=== PATIENT | male | born 1965 | race Caucasian/White ===

== ENCOUNTER 2017-12-15 07:19 | Emergency (ER) | payer MEDICAID ==
[2017-12-15 07:32] VITALS: BP 155/97
[2017-12-15] MEDS ORDERED: Ketorolac 60 MG/2 ML SDV IM ONE (07:45)
--- NOTE | 2017-12-15 07:51 | EDM.PDOC ---
ED HPI GENERAL MEDICAL PROBLEM - General Chief Complaint: Upper Extremity Injury/Pain Stated Complaint: LEFT SHOULDER PAIN Time Seen by Provider: 12/15/17 07:35 Source of Information: Reports: Patient, Old Records, RN History Limitations: Reports: No Limitations - History of Present Illness INITIAL COMMENTS - FREE TEXT/NARRATIVE: 52 yo male with a hx of a chronic L rotator cuff tear presents with a marked worsening this pain. States he noticed it getting worse when he tried to drive to [place] yesterday. Then not able to sleep well last night. Has most of his pain to the L post neck and L upper back. Pain is worse with breathing. No fever or chills or SOB or cough. Also mentions a recent tooth ache that is not bothering him as much currently, came on over the weekend. Onset: Gradual Onset Date: 12/14/17 Duration: Hour(s):, Constant, Getting Worse Location: Reports: Upper Extremity, Left Quality: Reports: Ache Severity: Moderate Improves with: Reports: Rest Worsens with: Reports: Movement Context: Reports: Other (chronic L rotator cuff tear) Associated Symptoms: Reports: No Other Symptoms Treatments BULB GROWER: Reports: Other (see below) (none) Left Neck Pain Score (Numeric/FACES): 5 - Related Data Allergies Allergy/AdvReac Type Severity Reaction Status Date / Time No Known Allergies Allergy Verified 12/15/17 07:28 Home Meds: Home Meds Cyclobenzaprine [Flexeril] 5 - 10 mg PO TID PRN #14 tab 12/15/17 [Rx] Meloxicam [Mobic] 15 mg PO DAILY PRN #14 tablet 12/15/17 [Rx] Past Medical History Gastrointestinal History: Reports: None Musculoskeletal History: Reports: Arthritis - Infectious Disease History Infectious Disease History: Reports: Chicken Pox, Measles - Past Surgical History Head Surgeries/Procedures: Reports: None GI Surgical History: Reports: Hernia, Inguinal Endocrine Surgical History: Reports: None Musculoskeletal Surgical History: Reports: Shoulder Surgery Dermatological Surgical History: Reports: None Social & Family History - Tobacco Use Smoking Status *Q: Current Every Day Smoker Years of Tobacco use: 30 Packs/Tins Daily: 1 Used Tobacco, but Quit: No Second Hand Smoke Exposure: No - Caffeine Use Caffeine Use: Reports: Coffee - Recreational Drug Use Recreational Drug Use: No Review of Systems - Review of Systems Review Of Systems: See Below Constitutional: Reports: No Symptoms Respiratory: Reports: Pleuritic Chest Pain (L upper back). Denies: Shortness of Breath, Wheezing, Cough, Sputum, Hemoptysis Cardiovascular: Reports: No Symptoms GI/Abdominal: Reports: No Symptoms Musculoskeletal: Reports: Shoulder Pain (Left), Back Pain (L upper back) Skin: Reports: No Symptoms Neurological: Reports: No Symptoms ED EXAM, GENERAL - Physical Exam Exam: See Below Exam Limited By: No Limitations General Appearance: Alert, WD/WN, Mild Distress Eye Exam: Bilateral Eye: Normal Inspection Ears: Normal External Exam, Normal Canal, Hearing Grossly Normal Ear Exam: Bilateral Ear: Auricle Normal Nose: Normal Inspection, Normal Mucosa, No Blood Throat/Mouth: Normal Inspection, Normal Lips, Normal Oropharynx, Normal Voice, No Airway Compromise Head: Atraumatic, Normocephalic Neck: Normal Inspection, Non-Tender (Has pain with movement, not with palpation) Respiratory/Chest: No Respiratory Distress, Lungs Clear, Normal Breath Sounds, No Accessory Muscle Use Cardiovascular: Regular Rate, Rhythm Back Exam: Normal Inspection, Other (no palpable tenderness). No: CVA Tenderness (R), CVA Tenderness (L) Extremities: Non-Tender (no palpable tenderness.), Limited Range of Motion, Other (L deltoid is atrophic). No: No Pedal Edema Neurological: Alert, Oriented, CN II-XII Intact, Normal Cognition, No Motor/ Sensory Deficits Psychiatric: Normal Affect, Normal Mood Skin Exam: Warm, Dry, Intact, Normal Color, No Rash Lymphatic: No Adenopathy Course - Vital Signs Text/Narrative:: Pain more tolerable after Toradol. Last Recorded V/S: Last Vital Signs Temp 33.5 C L 12/15/17 07:38 Pulse 64 12/15/17 07:38 Resp 16 12/15/17 07:38 BP 155/97 H 12/15/17 07:38 Pulse Ox 97 12/15/17 07:38 - Orders/Labs/Meds Orders: Active Orders 24 hr Category Date Time Status Chest 2V [CR] Stat Exams 12/15/17 07:45 Taken Meds: Medications Discontinued Medications Generic Name Dose Route Start Last Admin Trade Name Freq PRN Reason Stop Dose Admin Cyclobenzaprine HCl 10 mg 12/15/17 08:11 12/15/17 08:15 Flexeril PO 12/15/17 08:12 10 mg ONETIME ONE Administration Ketorolac Tromethamine 60 mg 12/15/17 07:45 12/15/17 07:50 Toradol IM 12/15/17 07:46 60 mg ONETIME ONE Administration - Radiology Interpretation Free Text/Narrative:: CXR-neg Departure - Departure Time of Disposition: 08:35 Disposition: Home, Self-Care 01 Condition: Fair Clinical Impression: Shoulder pain, left Qualifiers: Chronicity: chronic Qualified Code(s): M25.512 - Pain in left shoulder; G89.29 - Other chronic pain - Discharge Information *PRESCRIPTION DRUG MONITORING PROGRAM REVIEWED*: No *COPY OF PRESCRIPTION DRUG MONITORING REPORT IN PATIENT JULITO: No Prescriptions: Cyclobenzaprine [Flexeril] 5 - 10 mg PO TID PRN #14 tab PRN Reason: Pain Meloxicam [Mobic] 15 mg PO DAILY PRN #14 tablet PRN Reason: Pain Instructions: Shoulder Pain Referrals: PCP,None [Primary Care Provider] - Forms: ED Department Discharge Additional Instructions: Take meloxicam and Flexeril as needed for pain relief. May add acetaminophen up to 1000 mg every 6 hrs for added relief. Recheck with your doctor later this week. - My Orders Last 24 Hours: My Active Orders 12/15/17 07:45 Chest 2V [CR] Stat - Assessment/Plan Last 24 Hours: My Active Orders 12/15/17 07:45 Chest 2V [CR] Stat
[2017-12-15] MEDS ORDERED: Cyclobenzaprine 10 MG Tab PO ONE (08:11)
--- NOTE | 2017-12-15 10:21 | CR ---
CHEST: 2 view CLINICAL HISTORY:Upper back pain COMPARISON:None FINDINGS: Heart size and pulmonary vascularity are normal. Lung bustillo are clear. IMPRESSION: No acute cardiopulmonary process
== END 2017-12-15 08:38 | disposition home or self-care (01) ==
LOC: JP.ED 07:19
DX: M25.512 Pain in left shoulder (principal); F17.210 Nicotine dependence, cigarettes, uncomplicated
CPT/HCPCS: 71046; 96372; 99284; A9270; J1885

== ENCOUNTER 2018-05-09 20:34 | Inpatient (IN) | payer MEDICAID ==
--- NOTE | 2018-05-09 22:17 | EDM.PDOC ---
ED HPI GENERAL MEDICAL PROBLEM - General Chief Complaint: Lower Extremity Injury/Pain Stated Complaint: HIP SURGERY SWELLING Time Seen by Provider: 05/09/18 22:15 Source of Information: Reports: Patient History Limitations: Reports: No Limitations - History of Present Illness INITIAL COMMENTS - FREE TEXT/NARRATIVE: pt had surgery 2 weeks ago when he had a total hip done. He now has swelling of his entire leg. This has happenmed in the last 2 days. He is not having alot of pain. Onset: Gradual Duration: Hour(s): Location: Reports: Lower Extremity, Left Associated Symptoms: Reports: No Other Symptoms left calf Pain Score (Numeric/FACES): 1 - Related Data Allergies Allergy/AdvReac Type Severity Reaction Status Date / Time No Known Allergies Allergy Verified 05/09/18 21:56 Home Meds: Home Meds Aspirin [Ecotrin] 325 mg PO BID 05/09/18 [History] Past Medical History Respiratory History: Reports: Asthma, COPD Gastrointestinal History: Reports: GERD Musculoskeletal History: Reports: Arthritis, Fracture Psychiatric History: Reports: Depression, Psych Hospitalization(s) Hematologic History: Reports: Other (See Below) Other Hematologic History: aspirin BID - Infectious Disease History Infectious Disease History: Reports: Chicken Pox, Measles - Past Surgical History Head Surgeries/Procedures: Reports: None GI Surgical History: Reports: Hernia, Inguinal Endocrine Surgical History: Reports: None Musculoskeletal Surgical History: Reports: Hip Replacement, Shoulder Surgery Dermatological Surgical History: Reports: None Social & Family History - Tobacco Use Smoking Status *Q: Current Every Day Smoker Years of Tobacco use: 30 Packs/Tins Daily: 0.7 - Caffeine Use Caffeine Use: Reports: Coffee - Recreational Drug Use Recreational Drug Use: No Review of Systems - Review of Systems Review Of Systems: See Below Constitutional: Reports: No Symptoms Eyes: Reports: No Symptoms Ears: Reports: No Symptoms Nose: Reports: No Symptoms Mouth/Throat: Reports: No Symptoms Respiratory: Reports: No Symptoms Cardiovascular: Reports: No Symptoms GI/Abdominal: Reports: No Symptoms Genitourinary: Reports: No Symptoms Musculoskeletal: Reports: Other (pt had a total hip done about 2 weeks ago. He now has swelling of the entire leg. ) Skin: Reports: No Symptoms ED EXAM, GENERAL - Physical Exam Exam: See Below Free Text/Narrative:: pt arrived with swelling of the entire leg on the left. He had a total hip on that side 2 weeks ago. He has been taking 2 asa daily since the surgery. Exam Limited By: No Limitations General Appearance: Alert, Mild Distress Ears: Normal TMs Nose: Normal Inspection Throat/Mouth: Normal Inspection Head: Atraumatic Neck: Normal Inspection Respiratory/Chest: No Respiratory Distress, Other (Pt has not had sob. ) Cardiovascular: Regular Rate, Rhythm GI/Abdominal: Soft, Non-Tender (Male) Exam: Deferred Rectal (Males) Exam: Deferred Extremities: Other (pt has a warm foot with a adequate pulse. He has swelling of his entire leg. The wound from the total hip looks good. ) Neurological: Alert, Oriented, Normal Cognition Psychiatric: Normal Affect Course - Vital Signs Last Recorded V/S: Last Vital Signs Temp 36.1 C 05/09/18 21:57 Pulse 85 05/09/18 21:57 Resp 18 05/09/18 21:57 BP 126/84 05/09/18 21:57 Pulse Ox 96 05/09/18 21:57 - Orders/Labs/Meds Orders: Active Orders 24 hr Category Date Time Status VL Duplex Lwr Ext Veins Ltd Lt [US] Stat Exams 05/09/18 21:42 Ordered BASIC METABOLIC PANEL,BMP [CHEM] Stat Lab 05/09/18 23:43 Ordered INR,PT,PROTHROMBIN TIME [COAG] Stat Lab 05/09/18 23:43 Ordered PTT,PARTIAL THROMBOPLSTIN TIME [COAG] Stat Lab 05/09/18 23:39 Ordered Labs: Laboratory Tests 05/09/18 Range/Units 21:52 WBC 10.1 (4.5-11.0) K/uL RBC 4.29 L (4.30-5.90) M/uL Hgb 13.4 (12.0-15.0) g/dL Hct 39.3 L (40.0-54.0) % MCV 92 (80-98) fL MCH 31 (27-31) pg MCHC 34 (32-36) % Plt Count 311 (150-400) K/uL Neut % (Auto) 59 (36-66) % Lymph % (Auto) 29 (24-44) % [place] % (Auto) 8 H (2-6) % Eos % (Auto) 3 (2-4) % Baso % (Auto) 1 (0-1) % - Re-Assessments/Exams Free Text/Narrative Re-Assessment/Exam: 05/09/18 23:47 Pt arrived with swelling of his entire left leg. He had a US which reveals a clot in the profunda. He will be placed on a heparin drip. Dr Villa will be in to admit the pt. Departure - Departure Time of Disposition: 23:48 Disposition: Admitted As Inpatient 65 Condition: Fair Clinical Impression: Dvt femoral (deep venous thrombosis) - Discharge Information Referrals: Maldonado Cloud MD [Primary Care Provider] - Forms: ED Department Discharge Care Plan Goals: admit to Dr villa. - My Orders Last 24 Hours: My Active Orders 05/09/18 21:42 VL Duplex Lwr Ext Veins Ltd Lt [US] Stat 05/09/18 23:39 PTT,PARTIAL THROMBOPLSTIN TIME [COAG] Stat 05/09/18 23:43 BASIC METABOLIC PANEL,BMP [CHEM] Stat INR,PT,PROTHROMBIN TIME [COAG] Stat - Assessment/Plan Last 24 Hours: My Active Orders 05/09/18 21:42 VL Duplex Lwr Ext Veins Ltd Lt [US] Stat 05/09/18 23:39 PTT,PARTIAL THROMBOPLSTIN TIME [COAG] Stat 05/09/18 23:43 BASIC METABOLIC PANEL,BMP [CHEM] Stat INR,PT,PROTHROMBIN TIME [COAG] Stat
[2018-05-10] MEDS ORDERED: Heparin Sodium 5,000 Units/ML Vial IVPUSH ONE ×3 (00:20→19:00)
--- NOTE | 2018-05-10 00:36 | PCM.HP ---
H&P History of Present Illness - General Date of Service: 05/10/18 Admit Problem/Dx: Admission Diagnosis/Problem Admission Diagnosis/Problem DVT, Deep venous thrombosis of lower extremity Source of Information: Patient, Family, Provider History Limitations: Reports: No Limitations - History of Present Illness Initial Comments - Free Text/Narative: Ariel presents to the emergency room today with 2 days of left leg swelling which extends from his groin down to his foot. Yesterday he had swelling from the foot up to the knee but it got better after he was off his feet for a while so he didn't worry about it too much. He has not had any pain with swelling. He does note pain in the groin and pain down the left lateral side of his hip which has been present since surgery but slowly is getting better. He hasn't noticed any redness or warmth of the leg. No injury to the leg. Physical therapy and rehabilitation had been going quite well up until the swelling started a couple of days ago. He does not report any fevers, shortness of breath or cough. No abdominal pain or nausea. No history of DVT. Workup in the emergency room revealed a proximal left leg DVT. The patient will be admitted for anticoagulation. left calf Pain Score (Numeric/FACES): 1 - Related Data Allergies/Adverse Reactions: Allergies Allergy/AdvReac Type Severity Reaction Status Date / Time No Known Allergies Allergy Verified 05/09/18 21:56 Home Medications: Home Meds Aspirin [Ecotrin] 325 mg PO BID 05/09/18 [History] Past Medical History Respiratory History: Reports: Asthma, COPD Gastrointestinal History: Reports: GERD Musculoskeletal History: Reports: Arthritis, Fracture Psychiatric History: Reports: Depression, Psych Hospitalization(s) Hematologic History: Reports: Other (See Below) Other Hematologic History: aspirin BID - Infectious Disease History Infectious Disease History: Reports: Chicken Pox, Measles - Past Surgical History Head Surgeries/Procedures: Reports: None GI Surgical History: Reports: Hernia, Inguinal Endocrine Surgical History: Reports: None Musculoskeletal Surgical History: Reports: Hip Replacement, Shoulder Surgery Dermatological Surgical History: Reports: None Social & Family History - Family History Cardiac: Reports: CAD (Father) - Tobacco Use Smoking Status *Q: Current Every Day Smoker Years of Tobacco use: 30 Packs/Tins Daily: 0.7 - Caffeine Use Caffeine Use: Reports: Coffee - Alcohol Use Alcohol Use History: Yes Alcohol Use in Last Twelve Months: Yes Alcohol Use Frequency: Monthly - Recreational Drug Use Recreational Drug Use: No H&P Review of Systems - Review of Systems: Review Of Systems: See Below Free Text/Narrative: A complete 12 point review of systems was obtained. Pertinent positives and negatives are noted in the history of present illness. All other systems were reviewed and were negative except as noted. Exam - Exam Exam: See Below - Vital Signs Vital Signs: Last Vital Signs Temp 36.1 C 05/09/18 21:57 Pulse 85 05/09/18 21:57 Resp 18 05/09/18 21:57 BP 126/84 05/09/18 21:57 Pulse Ox 96 05/09/18 21:57 Weight: 97.4 kg - Exam Quality Assessment: No: Supplemental Oxygen General: Alert, Oriented, Cooperative. No: Mild Distress HEENT: Conjunctiva Clear, Mucosa Moist & [place]. No: Scleral Icterus Neck: Supple, Trachea Midline. No: Lymphadenopathy Lungs: Clear to Auscultation, Normal Respiratory Effort Cardiovascular: Regular Rate, Regular Rhythm. No: Systolic Murmur GI/Abdominal Exam: Normal Bowel Sounds, Soft, Non-Tender, No Distention Back Exam: Normal Inspection, Full Range of Motion Extremities: No Pedal Edema (On the right), Pedal Edema (Left leg swollen from the foot all the way up to the groin). No: Increased Warmth Skin: Warm, Dry, Incision (Left lateral thigh incision is healing well with no erythema or drainage) Neuro Extensive - Mental Status: Alert, Oriented x3, Nl Response to Commands Neuro Extensive - Motor, Sensory, Reflexes: CN II-XII Intact. No: Dysarthria, Abnormal Motor, Tremor Psychiatric: Alert, Normal Affect - Patient Data Lab Results Last 24 hrs: Laboratory Results - last 24 hr 05/09/18 05/09/18 05/09/18 Range/Units 00:04 00:04 00:04 WBC (4.5-11.0) K/uL RBC (4.30-5.90) M/uL Hgb (12.0-15.0) g/dL Hct (40.0-54.0) % MCV (80-98) fL MCH (27-31) pg MCHC (32-36) % Plt Count (150-400) K/uL Neut % (Auto) (36-66) % Lymph % (Auto) (24-44) % [place] % (Auto) (2-6) % Eos % (Auto) (2-4) % Baso % (Auto) (0-1) % PT 10.0 (9.5-12.0) sec INR 0.90 (0.80-1.20) APTT 29.2 (27.0-36.0) sec Sodium 139 L (140-148) mmol/L Potassium 4.0 (3.6-5.2) mmol/L Chloride 102 (100-108) mmol/L Carbon Dioxide 27 (21-32) mmol/L Anion Gap 14.0 (5.0-14.0) mmol/L BUN 17 (7-18) mg/dL Creatinine 0.9 (0.8-1.3) mg/dL Est Cr Clr Drug Dosing 104.19 mL/min Estimated GFR (MDRD) > 60 (>60) Glucose 104 (74-106) mg/dL Calcium 9.3 (8.5-10.1) mg/dL 05/09/18 Range/Units 21:52 WBC 10.1 (4.5-11.0) K/uL RBC 4.29 L (4.30-5.90) M/uL Hgb 13.4 (12.0-15.0) g/dL Hct 39.3 L (40.0-54.0) % MCV 92 (80-98) fL MCH 31 (27-31) pg MCHC 34 (32-36) % Plt Count 311 (150-400) K/uL Neut % (Auto) 59 (36-66) % Lymph % (Auto) 29 (24-44) % [place] % (Auto) 8 H (2-6) % Eos % (Auto) 3 (2-4) % Baso % (Auto) 1 (0-1) % PT (9.5-12.0) sec INR (0.80-1.20) APTT (27.0-36.0) sec Sodium (140-148) mmol/L Potassium (3.6-5.2) mmol/L Chloride (100-108) mmol/L Carbon Dioxide (21-32) mmol/L Anion Gap (5.0-14.0) mmol/L BUN (7-18) mg/dL Creatinine (0.8-1.3) mg/dL Est Cr Clr Drug Dosing mL/min Estimated GFR (MDRD) (>60) Glucose (74-106) mg/dL Calcium (8.5-10.1) mg/dL Result Diagrams: 05/09/18 21:52 05/09/18 00:04 Imaging Impressions Last 24 hrs: Venous ultrasound of the left lower extremity - images personally reviewed - there is evidence for DVT in the profundus vein on the left leg with impaired flow and limited compressibility noted with the ultrasound. *Q Meaningful Use (ADM) - VTE Risk Assess *Q Each Risk Factor Represents 1 Point: Age 41 - 59 years, Obesity ( BMI > 25 kg/m2 ) Total Score 1 Point Risk Factors: 2 Each Risk Factor Represents 2 Points: None Total Score 2 Point Risk Factors: 0 Each Risk Factor Represents 3 Points: None Total Score 3 Point Risk Factors: 0 Each Risk Factor Represents 5 Points: Elective Major Lower Extremity Arthroplasty Total Score 5 Point Risk Factors: 5 Venous Thromboembolism Risk Factor Score *Q: 7 - Problem List (1) Dvt femoral (deep venous thrombosis) SNOMED Code(s): 692400012 ICD Code: I82.419 - ACUTE EMBOLISM AND THROMBOSIS OF UNSPECIFIED FEMORAL VEIN Status: Acute Current Visit: Yes Qualifiers: Chronicity: acute Laterality: left Qualified Code(s): I82.412 - Acute embolism and thrombosis of left femoral vein Problem List Initiated/Reviewed/Updated: Yes Orders Last 24hrs: Active Orders 24 hr Category Date Time Status Patient Status Manage Transfer [TRANSFER] Routine ADT 05/10/18 00:22 Ordered VL Duplex Lwr Ext Veins Ltd Lt [US] Stat Exams 05/09/18 21:42 Taken PTT,PARTIAL THROMBOPLSTIN TIME [COAG] Q6H Lab 05/10/18 06:30 Ordered PTT,PARTIAL THROMBOPLSTIN TIME [COAG] Q6 Lab 05/10/18 12:30 Ordered PTT,PARTIAL THROMBOPLSTIN TIME [COAG] Q6 Lab 05/10/18 18:30 Ordered PTT,PARTIAL THROMBOPLSTIN TIME [COAG] Q6 Lab 05/11/18 00:30 Ordered PTT,PARTIAL THROMBOPLSTIN TIME [COAG] Q6H Lab 05/11/18 06:30 Ordered PTT,PARTIAL THROMBOPLSTIN TIME [COAG] Q6 Lab 05/11/18 12:30 Ordered PTT,PARTIAL THROMBOPLSTIN TIME [COAG] Q6H Lab 05/11/18 18:30 Ordered Heparin Sodium/D5W [Heparin 25,000 Units in D5W 500 ML] Med 05/10/18 00:30 Ordered 25,000 units in 500 ml IV TITRATE Sodium Chloride 0.9% [Saline Flush] Med 05/09/18 23:51 Active 10 ml FLUSH ASDIRECTED PRN Saline Lock Insert [OM.PC] Routine Oth 05/09/18 23:51 Ordered Resuscitation Status Routine Resus Stat 05/10/18 00:24 Ordered Medication Orders Heparin Sodium/Dextrose (Heparin 25,000 Units In D5w 500 Ml) 25,000 units in 500 mls @ 35.064 mls/hr IV TITRATE ABILIO; Protocol Sodium Chloride (Saline Flush) 10 ml FLUSH ASDIRECTED PRN PRN Reason: Keep Vein Open Assessment/Plan Comment:: ASSESSMENT AND PLAN - Proximal left leg DVT - provoked with recent hip surgery about 2 weeks ago. Main symptom at this time the swelling without significant pain. 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 We reviewed the benefits of smoking cessation including decreased risk of heart disease and certain cancers. He would like to continue the utilizing the nicotine patch. -21 mg nicotine patch daily Maintenance issues - - DVT prophylaxis - heparin drip - GI prophylaxis - Not indicated - Nutrition - Regular - Mendoza catheter - Not indicated CODE STATUS - Full code Admission justification - This patient will be admitted for inpatient services and is medically appropriate meeting medical necessity for inpatient admission as outlined in my documentation. I reasonably expect the patient will require inpatient services that span a period time over 2 midnights. I reasonably expect this patient to be discharged or transferred within 96 hours [facility]. Disposition - I would anticipate discharge home after the hospital stay Ziggy Asencio M.D.
[2018-05-10] MEDS: Sodium Chloride 0.9% 10 ML Syringe FLUSH PRN ×2 (00:47→07:53)
[2018-05-10] MEDS ORDERED: Nicotine 21 MG/24 Hr Patch TRDERM SCH (01:10)
[2018-05-10] MEDS ORDERED: Ondansetron 4 MG Tab.DIS PO PRN (01:10)
[2018-05-10] MEDS ORDERED: Sodium Chloride 0.9% 1,000 ML IV SCH (01:10)
[2018-05-10] MEDS ORDERED: Acetaminophen 325 MG Tab PO PRN (01:10)
[2018-05-10] MEDS: Heparin Sodium/D5W 25,000 UNITS/500 ML BAG IV SCH ×2 (01:19→14:18)
--- NOTE | 2018-05-10 09:38 | PCM.PN ---
- General Info Date of Service: 05/10/18 Subjective Update: No acute events since admission. Left leg swelling is slightly better. Left hip pain following surgery is stable. He is getting around with a walker or cane. No bleeding issues. No shortness of breath. Functional Status: Reports: Pain Controlled, Tolerating Diet, Ambulating - Review of Systems General: Denies: Fever Cardiovascular: Reports: Edema - Patient Data Vitals - Most Recent: Last Vital Signs Temp 36.6 C 05/10/18 08:53 Pulse 75 05/10/18 08:53 Resp 16 05/10/18 08:53 BP 142/98 H 05/10/18 08:53 Pulse Ox 96 05/10/18 08:53 Weight - Most Recent: 97.4 kg I&O - Last 24 Hours: Intake & Output 05/09/18 05/10/18 05/10/18 22:59 06:59 14:59 Intake Total 1000 Balance 1000 Lab Results Last 24 Hours: Laboratory Results - last 24 hr 05/09/18 05/09/18 05/09/18 Range/Units 00:04 00:04 00:04 WBC (4.5-11.0) K/uL RBC (4.30-5.90) M/uL Hgb (12.0-15.0) g/dL Hct (40.0-54.0) % MCV (80-98) fL MCH (27-31) pg MCHC (32-36) % Plt Count (150-400) K/uL Neut % (Auto) (36-66) % Lymph % (Auto) (24-44) % [place] % (Auto) (2-6) % Eos % (Auto) (2-4) % Baso % (Auto) (0-1) % PT 10.0 (9.5-12.0) sec INR 0.90 (0.80-1.20) APTT 29.2 (27.0-36.0) sec Sodium 139 L (140-148) mmol/L Potassium 4.0 (3.6-5.2) mmol/L Chloride 102 (100-108) mmol/L Carbon Dioxide 27 (21-32) mmol/L Anion Gap 14.0 (5.0-14.0) mmol/L BUN 17 (7-18) mg/dL Creatinine 0.9 (0.8-1.3) mg/dL Est Cr Clr Drug Dosing 104.19 mL/min Estimated GFR (MDRD) > 60 (>60) Glucose 104 (74-106) mg/dL Calcium 9.3 (8.5-10.1) mg/dL 05/09/18 05/10/18 05/10/18 Range/Units 21:52 06:30 06:30 WBC 10.1 9.4 (4.5-11.0) K/uL RBC 4.29 L 4.07 L (4.30-5.90) M/uL Hgb 13.4 13.0 (12.0-15.0) g/dL Hct 39.3 L 37.4 L (40.0-54.0) % MCV 92 92 (80-98) fL MCH 31 32 H (27-31) pg MCHC 34 35 (32-36) % Plt Count 311 286 (150-400) K/uL Neut % (Auto) 59 (36-66) % Lymph % (Auto) 29 (24-44) % [place] % (Auto) 8 H (2-6) % Eos % (Auto) 3 (2-4) % Baso % (Auto) 1 (0-1) % PT (9.5-12.0) sec INR (0.80-1.20) APTT 40.7 H (27.0-36.0) sec Sodium (140-148) mmol/L Potassium (3.6-5.2) mmol/L Chloride (100-108) mmol/L Carbon Dioxide (21-32) mmol/L Anion Gap (5.0-14.0) mmol/L BUN (7-18) mg/dL Creatinine (0.8-1.3) mg/dL Est Cr Clr Drug Dosing mL/min Estimated GFR (MDRD) (>60) Glucose (74-106) mg/dL Calcium (8.5-10.1) mg/dL Med Orders - Current: Current Medications Acetaminophen (Tylenol) 650 mg PO Q4H PRN PRN Reason: Pain (Mild 1-3)/fever Heparin Sodium/Dextrose (Heparin 25,000 Units In D5w 500 Ml) 25,000 units in 500 mls @ 35.064 mls/hr IV TITRATE [facility]; Protocol Last Titration: 05/10/18 07:06 Dose: 20 units/kg/hr, 38.96 mls/hr Sodium Chloride (Normal Saline) 1,000 mls @ 25 mls/hr IV ASDIRECTED [facility] Last Admin: 05/10/18 01:25 Dose: 25 mls/hr Nicotine (Habitrol) 21 mg TRDERM BEDTIME [facility] Ondansetron HCl (Zofran Odt) 4 mg PO Q6H PRN PRN Reason: Nausea able to take PO Senna/Docusate Sodium (Senna Plus) 1 tab PO BID PRN PRN Reason: Constipation Sodium Chloride (Saline Flush) 10 ml FLUSH ASDIRECTED PRN PRN Reason: Keep Vein Open Last Admin: 05/10/18 07:53 Dose: 10 ml Discontinued Medications Heparin Sodium (Porcine) (Heparin Sodium) 2,000 units IVPUSH .BOLUS ONE Stop: 05/10/18 00:21 Last Admin: 05/10/18 01:17 Dose: 2,000 units Heparin Sodium (Porcine) (Heparin Sodium) 1,500 units IVPUSH .BOLUS ONE Stop: 05/10/18 07:04 Last Admin: 05/10/18 07:52 Dose: 1,500 units Nicotine (Habitrol) 21 mg TRDERM DAILY [facility] Last Admin: 05/10/18 01:24 Dose: 21 mg - Exam Quality Assessment: No: Supplemental Oxygen General: Alert, Oriented, Cooperative, No Acute Distress Lungs: Normal Respiratory Effort GI/Abdominal Exam: Soft, No Distention Extremities: No Pedal Edema (right leg), Pedal Edema (left leg) Psy/Mental Status: Alert, Normal Affect - Problem List & Annotations (1) Dvt femoral (deep venous thrombosis) SNOMED Code(s): 264651260 Code(s): I82.419 - ACUTE EMBOLISM AND THROMBOSIS OF UNSPECIFIED FEMORAL VEIN Status: Acute Current Visit: Yes Qualifiers: Chronicity: acute Laterality: left Qualified Code(s): I82.412 - Acute embolism and thrombosis of left femoral vein - Problem List Review Problem List Initiated/Reviewed/Updated: Yes - My Orders Last 24 Hours: My Active Orders 05/10/18 00:24 Resuscitation Status Routine 05/10/18 00:30 Heparin Sodium/D5W [Heparin 25,000 Units in D5W 500 ML] 25,000 units in 500 ml IV TITRATE 05/10/18 01:10 Patient Status [ADT] Routine Antiembolic Devices [RC] .Routine Intake and Output [RC] QSHIFT Notify Provider Vital Signs [RC] ASDIRECTED Oxygen Therapy [RC] PRN Up With Assistance [RC] ASDIRECTED VTE/DVT Education [RC] Per Unit Routine Vital Signs [RC] Q4H Acetaminophen [Tylenol] 650 mg PO Q4H PRN Docusate Sodium/Sennosides [Senna Plus] 1 tab PO BID PRN Ondansetron [Zofran ODT] 4 mg PO Q6H PRN Sodium Chloride 0.9% [Normal Saline] 1,000 ml IV ASDIRECTED JOHN Hose [Antiembolic Hose] [OM.PC] Routine 05/10/18 12:30 PTT,PARTIAL THROMBOPLSTIN TIME [COAG] Q6H 05/10/18 18:30 PTT,PARTIAL THROMBOPLSTIN TIME [COAG] Q6H 05/10/18 21:00 Nicotine [Habitrol] 21 mg TRDERM BEDTIME 05/10/18 Breakfast Regular Diet [DIET] 05/11/18 00:30 PTT,PARTIAL THROMBOPLSTIN TIME [COAG] Q6H 05/11/18 05:00 BASIC METABOLIC PANEL,BMP [CHEM] Timed CBC W/O DIFF,HEMOGRAM [HEME] Timed (1) 05/11/18 06:30 PTT,PARTIAL THROMBOPLSTIN TIME [COAG] Q6H 05/11/18 12:30 PTT,PARTIAL THROMBOPLSTIN TIME [COAG] Q6H 05/11/18 18:30 PTT,PARTIAL THROMBOPLSTIN TIME [COAG] Q6H - Plan Plan:: ASSESSMENT AND PLAN - Proximal left leg DVT - provoked with recent hip surgery about 2 weeks ago. Main symptom at this time the swelling without significant pain. 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 We reviewed the benefits of smoking cessation including decreased risk of heart disease and certain cancers. He would like to continue the utilizing the nicotine patch. -21 mg nicotine patch daily Maintenance issues - - DVT prophylaxis - heparin drip - GI prophylaxis - Not indicated - Nutrition - Regular Disposition - I would anticipate discharge home after the hospital stay Ziggy Asencio M.D.
[2018-05-10] MEDS ORDERED: Calcium Carbonate 500 MG Tab.Chew PO PRN (11:26)
[2018-05-10] MEDS ORDERED: Aluminum Hydroxide/Magnesium Hydroxide/Simethicone Susp 30 ML Cup PO PRN (14:13)
[2018-05-10] MEDS: Nicotine 21 MG/24 Hr Patch TRDERM SCH (20:56)
[2018-05-10] MEDS: Melatonin 3 MG Tab PO SCH (20:56)
[2018-05-11] MEDS: Heparin Sodium/D5W 25,000 UNITS/500 ML BAG IV SCH (02:14)
--- NOTE | 2018-05-11 11:20 | PCM.PN ---
- General Info Date of Service: 05/11/18 Subjective Update: Mr. Gaytan has been stable since yesterday, significant improvement in swelling of his left leg. He is completed 48 hours of IV heparin and will plan to transition to oral anticoagulation today. Functional Status: Reports: Pain Controlled, Tolerating Diet, Ambulating, Urinating - Review of Systems General: Reports: No Symptoms Pulmonary: Reports: No Symptoms Cardiovascular: Reports: No Symptoms Gastrointestinal: Reports: No Symptoms - Patient Data Vitals - Most Recent: Last Vital Signs Temp 98.3 F 05/11/18 07:00 Pulse 71 05/11/18 07:00 Resp 14 05/11/18 07:00 BP 129/96 H 05/11/18 07:00 Pulse Ox 95 05/11/18 07:00 Weight - Most Recent: 214 lb 11.684 oz I&O - Last 24 Hours: Intake & Output 05/10/18 05/11/18 05/11/18 22:59 06:59 14:59 Intake Total 1860 Balance 1860 Lab Results Last 24 Hours: Laboratory Results - last 24 hr 05/10/18 05/10/18 05/11/18 Range/Units 12:30 18:30 00:30 WBC (4.5-11.0) K/uL RBC (4.30-5.90) M/uL Hgb (12.0-15.0) g/dL Hct (40.0-54.0) % MCV (80-98) fL MCH (27-31) pg MCHC (32-36) % Plt Count (150-400) K/uL APTT 50.7 H 44.6 H 66.8 H (27.0-36.0) sec Sodium (140-148) mmol/L Potassium (3.6-5.2) mmol/L Chloride (100-108) mmol/L Carbon Dioxide (21-32) mmol/L Anion Gap (5.0-14.0) mmol/L BUN (7-18) mg/dL Creatinine (0.8-1.3) mg/dL Est Cr Clr Drug Dosing mL/min Estimated GFR (MDRD) (>60) Glucose (74-106) mg/dL Calcium (8.5-10.1) mg/dL 05/11/18 05/11/18 05/11/18 Range/Units 05:00 05:00 06:30 WBC 7.8 (4.5-11.0) K/uL RBC 4.37 (4.30-5.90) M/uL Hgb 13.7 (12.0-15.0) g/dL Hct 40.0 (40.0-54.0) % MCV 92 (80-98) fL MCH 31 (27-31) pg MCHC 34 (32-36) % Plt Count 288 (150-400) K/uL APTT 69.9 H (27.0-36.0) sec Sodium 138 L (140-148) mmol/L Potassium 4.6 (3.6-5.2) mmol/L Chloride 103 (100-108) mmol/L Carbon Dioxide 28 (21-32) mmol/L Anion Gap 11.6 (5.0-14.0) mmol/L BUN 12 (7-18) mg/dL Creatinine 1.0 (0.8-1.3) mg/dL Est Cr Clr Drug Dosing 93.90 mL/min Estimated GFR (MDRD) > 60 (>60) Glucose 132 H (74-106) mg/dL Calcium 9.1 (8.5-10.1) mg/dL Med Orders - Current: Current Medications Acetaminophen (Tylenol) 650 mg PO Q4H PRN PRN Reason: Pain (Mild 1-3)/fever Last Admin: 05/10/18 11:52 Dose: 650 mg Al Hydroxide/Mg Hydroxide (Mag-Al Plus) 30 ml PO Q4H PRN PRN Reason: Indigestion Calcium Carbonate/Glycine (Tums) 1,000 mg PO Q2H PRN PRN Reason: Indigestion Last Admin: 05/10/18 11:53 Dose: 1,000 mg Sodium Chloride (Normal Saline) 1,000 mls @ 25 mls/hr IV ASDIRECTED [facility] Last Admin: 05/10/18 01:25 Dose: 25 mls/hr Melatonin (Melatonin) 9 mg PO BEDTIME [facility] Last Admin: 05/10/18 20:56 Dose: 9 mg Nicotine (Habitrol) 21 mg TRDERM BEDTIME [facility] Last Admin: 05/10/18 20:56 Dose: 21 mg Ondansetron HCl (Zofran Odt) 4 mg PO Q6H PRN PRN Reason: Nausea able to take PO Senna/Docusate Sodium (Senna Plus) 1 tab PO BID PRN PRN Reason: Constipation Sodium Chloride (Saline Flush) 10 ml FLUSH ASDIRECTED PRN PRN Reason: Keep Vein Open Last Admin: 05/10/18 07:53 Dose: 10 ml Discontinued Medications Heparin Sodium (Porcine) (Heparin Sodium) 2,000 units IVPUSH .BOLUS ONE Stop: 05/10/18 00:21 Last Admin: 05/10/18 01:17 Dose: 2,000 units Heparin Sodium (Porcine) (Heparin Sodium) 1,500 units IVPUSH .BOLUS ONE Stop: 05/10/18 07:04 Last Admin: 05/10/18 07:52 Dose: 1,500 units Heparin Sodium (Porcine) (Heparin Sodium) 1,500 units IVPUSH .BOLUS ONE Stop: 05/10/18 19:01 Last Admin: 05/10/18 20:00 Dose: 1,500 units Heparin Sodium/Dextrose (Heparin 25,000 Units In D5w 500 Ml) 25,000 units in 500 mls @ 35.064 mls/hr IV TITRATE [facility]; Protocol Last Admin: 05/11/18 02:14 Dose: 22 units/kg/hr, 42.856 mls/hr Nicotine (Habitrol) 21 mg TRDERM DAILY [facility] Last Admin: 05/10/18 01:24 Dose: 21 mg - Exam General: Alert, Oriented, Cooperative, No Acute Distress Lungs: Clear to Auscultation, Normal Respiratory Effort Cardiovascular: Regular Rate, Regular Rhythm, No Murmurs GI/Abdominal Exam: Soft, Non-Tender, No Organomegaly, No Distention - Problem List Review Problem List Initiated/Reviewed/Updated: Yes - My Orders Last 24 Hours: My Active Orders 05/11/18 12:00 Rivaroxaban [Xarelto] 15 mg PO BID - Plan Plan:: ASSESSMENT AND PLAN - Proximal left leg DVT - provoked with recent hip surgery about 2 weeks ago. 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 We reviewed the benefits of smoking cessation including decreased risk of heart disease and certain cancers. He would like to continue the utilizing the nicotine patch. -21 mg nicotine patch daily Maintenance issues - - DVT prophylaxis - heparin drip - GI prophylaxis - Not indicated - Nutrition - Regular Disposition - I would anticipate discharge home after the hospital stay
[2018-05-11] MEDS: Rivaroxaban 15 MG Tab PO SCH ×2 (12:35→20:10)
[2018-05-11] MEDS: Melatonin 3 MG Tab PO SCH (20:10)
[2018-05-11] MEDS: Nicotine 21 MG/24 Hr Patch TRDERM SCH (20:10)
[2018-05-12 08:35] VITALS: BP 153/92
[2018-05-12] MEDS: Rivaroxaban 15 MG Tab PO SCH (08:37)
--- NOTE | 2018-05-12 10:49 | PCM.DCSUM1 ---
Discharge Summary - Hospital Course Brief History: Mr. Gaytan is a 52-year-old gentleman who is admitted through the emergency department with swelling and pain in his left leg secondary to a proximal deep vein thrombosis. - Discharge Data Discharge Date: 05/12/18 Discharge Disposition: Home, Self-Care 01 Condition: Fair - Discharge Diagnosis/Problem(s) (1) Dvt femoral (deep venous thrombosis) SNOMED Code(s): 511109534 ICD Code: I82.419 - ACUTE EMBOLISM AND THROMBOSIS OF UNSPECIFIED FEMORAL VEIN Status: Acute Current Visit: Yes Qualifiers: Chronicity: acute Laterality: left Qualified Code(s): I82.412 - Acute embolism and thrombosis of left femoral vein - Patient Summary/Data Hospital Course: Ariel presented to the emergency room, with 2 days of left leg swelling which extends from his groin down to his foot. He is status post left total hip arthroplasty done during the early portion of April. Yesterday he had swelling from the foot up to the knee but it got better after he was off his feet for a while so he didn't worry about it too much. He has not had any pain with swelling. He does note pain in the groin and pain down the left lateral side of his hip which has been present since surgery but slowly is getting better. He hasn't noticed any redness or warmth of the leg. No injury to the leg. Physical therapy and rehabilitation had been going quite well up until the swelling started a couple of days ago. He does not report any fevers, shortness of breath or cough. No abdominal pain or nausea. No history of DVT. Workup in the emergency room revealed a proximal left leg DVT. On admission he was started on continuous infusion of IV heparin following a bolus dose. Swelling improved over the next few days of hospitalization and had almost totally resolved by the time of discharge. As the swelling improved he was able to be more active and by the time of discharge was up walking in the halls. On the day prior to discharge we had a discussion concerning options for oral anticoagulation. He's decided to take Xarelto and will be on 15 mg twice daily for the first 21 days, then 20 mg daily thereafter. Activity will be as tolerated and he will resume his usual diet. He already has a follow-up appointment with orthopedic surgery for early May and a follow-up appointment will be scheduled with Dr. Cloud within the next week. - Patient Instructions Diet: Usual Diet as Tolerated Activity: As Tolerated Other/Special Instructions: Please schedule follow-up appointment with Dr. Cloud within one week. - Discharge Plan *PRESCRIPTION DRUG MONITORING PROGRAM REVIEWED*: Not Applicable *COPY OF PRESCRIPTION DRUG MONITORING REPORT IN PATIENT JULITO: Not Applicable Home Medications: Home Meds Aspirin [Ecotrin] 325 mg PO BID 05/09/18 [History] Rivaroxaban [Xarelto] 15 mg PO BID #0 tablet 05/12/18 [Rx] Referrals: Maldonado Cloud MD [Primary Care Provider] - - Discharge Summary/Plan Comment DC Time >30 min.: No - Patient Data Vitals - Most Recent: Last Vital Signs Temp 96.1 F 05/12/18 08:33 Pulse 76 05/12/18 08:33 Resp 16 05/12/18 08:33 BP 153/92 H 05/12/18 08:33 Pulse Ox 96 05/12/18 08:33 Weight - Most Recent: 214 lb 11.684 oz I&O - Last 24 hours: Intake & Output 05/11/18 05/12/18 05/12/18 22:59 06:59 14:59 Intake Total 1500 Balance 1500 Lab Results - Last 24 hrs: Laboratory Results - last 24 hr 05/11/18 05/11/18 Range/Units 12:30 18:30 APTT 61.9 H 32.5 (27.0-36.0) sec Med Orders - Current: Current Medications Acetaminophen (Tylenol) 650 mg PO Q4H PRN PRN Reason: Pain (Mild 1-3)/fever Last Admin: 05/10/18 11:52 Dose: 650 mg Al Hydroxide/Mg Hydroxide (Mag-Al Plus) 30 ml PO Q4H PRN PRN Reason: Indigestion Calcium Carbonate/Glycine (Tums) 1,000 mg PO Q2H PRN PRN Reason: Indigestion Last Admin: 05/10/18 11:53 Dose: 1,000 mg Sodium Chloride (Normal Saline) 1,000 mls @ 25 mls/hr IV ASDIRECTED [facility] Last Admin: 05/10/18 01:25 Dose: 25 mls/hr Melatonin (Melatonin) 9 mg PO BEDTIME [facility] Last Admin: 05/11/18 20:10 Dose: 9 mg Nicotine (Habitrol) 21 mg TRDERM BEDTIME [facility] Last Admin: 05/11/18 20:10 Dose: 21 mg Ondansetron HCl (Zofran Odt) 4 mg PO Q6H PRN PRN Reason: Nausea able to take PO Rivaroxaban (Xarelto) 15 mg PO BID [facility] Last Admin: 05/12/18 08:37 Dose: 15 mg Senna/Docusate Sodium (Senna Plus) 1 tab PO BID PRN PRN Reason: Constipation Sodium Chloride (Saline Flush) 10 ml FLUSH ASDIRECTED PRN PRN Reason: Keep Vein Open Last Admin: 05/10/18 07:53 Dose: 10 ml Discontinued Medications Heparin Sodium (Porcine) (Heparin Sodium) 2,000 units IVPUSH .BOLUS ONE Stop: 05/10/18 00:21 Last Admin: 05/10/18 01:17 Dose: 2,000 units Heparin Sodium (Porcine) (Heparin Sodium) 1,500 units IVPUSH .BOLUS ONE Stop: 05/10/18 07:04 Last Admin: 05/10/18 07:52 Dose: 1,500 units Heparin Sodium (Porcine) (Heparin Sodium) 1,500 units IVPUSH .BOLUS ONE Stop: 05/10/18 19:01 Last Admin: 05/10/18 20:00 Dose: 1,500 units Heparin Sodium/Dextrose (Heparin 25,000 Units In D5w 500 Ml) 25,000 units in 500 mls @ 35.064 mls/hr IV TITRATE [facility]; Protocol Last Titration: 05/11/18 12:35 Dose: 0 units/kg/hr, 0 mls/hr Nicotine (Habitrol) 21 mg TRDERM DAILY [facility] Last Admin: 05/10/18 01:24 Dose: 21 mg - Exam General: Reports: Alert, Oriented, Cooperative, No Acute Distress Lungs: Reports: Clear to Auscultation, Normal Respiratory Effort Cardiovascular: Reports: Regular Rate, Regular Rhythm, No Murmurs GI/Abdominal Exam: Soft, Non-Tender, No Organomegaly, No Distention Extremities: Pedal Edema (Mild left leg)
== END 2018-05-12 11:05 | disposition home or self-care (01) | DRG 301 ==
LOC: JP.ED 20:34 → JP.ICU 05-10 00:22
PROVIDERS: ADMIT Internal Medicine; ATTEND Hospitalist
DX: I82.412 Acute embolism and thrombosis of left femoral vein (principal); F17.210 Nicotine dependence, cigarettes, uncomplicated; M19.90 Unspecified osteoarthritis, unspecified site; Z96.642 Presence of left artificial hip joint; Z79.82 Long term (current) use of aspirin; Z79.01 Long term (current) use of anticoagulants
CPT/HCPCS: 36415; 80048; 85025; 85027; 85610; 85730; 93005; 93971-LT; 96374; 99285-25; A9270-GY; J1644; J7030

== ENCOUNTER 2018-07-14 12:55 | Emergency (ER) | payer MEDICAID ==
--- NOTE | 2018-07-14 13:16 | EDM.PDOC ---
ED HPI GENERAL MEDICAL PROBLEM - General Chief Complaint: Chest Pain Stated Complaint: CHEST PAIN/COUGHING BLOOD Time Seen by Provider: 07/14/18 13:05 Source of Information: Reports: Patient, Family, Old Records History Limitations: Reports: No Limitations - History of Present Illness INITIAL COMMENTS - FREE TEXT/NARRATIVE: 53 yo male on Xarelto who recently quit smoking presents with onset today of hemoptysis. No fever. Is mildly SOB. No calf pain or LE swelling. Has mild chest pain. Has a pHx of hip replacement. Onset: Today Onset Date: 07/14/18 Duration: Hour(s):, Constant Location: Reports: Chest Quality: Reports: Dull Severity: Mild Improves with: Reports: None Worsens with: Reports: None Context: Reports: Other (See HPI) Associated Symptoms: Reports: Chest Pain (mild), Cough, Shortness of Breath ( mild). Denies: Fever/Chills Treatments [employer]: Reports: Other (see below) (none) - Related Data Allergies Allergy/AdvReac Type Severity Reaction Status Date / Time No Known Allergies Allergy Verified 07/14/18 13:06 Home Meds: Home Meds Aspirin [Ecotrin] 325 mg PO BID 05/09/18 [History] Rivaroxaban [Xarelto] 15 mg PO BID #0 tablet 05/12/18 [Rx] Codeine/guaiFENesin [Robitussin AC] 5 - 10 ml PO Q4H PRN #1 liquid 07/14/18 [Rx] Past Medical History Cardiovascular History: Reports: Blood Clots/VTE/DVT Respiratory History: Reports: Asthma, COPD Gastrointestinal History: Reports: GERD Musculoskeletal History: Reports: Arthritis, Fracture Psychiatric History: Reports: Depression, Psych Hospitalization(s) Hematologic History: Reports: Other (See Below) Other Hematologic History: aspirin BID - Infectious Disease History Infectious Disease History: Reports: Chicken Pox, Measles - Past Surgical History GI Surgical History: Reports: Hernia, Inguinal Endocrine Surgical History: Reports: None Musculoskeletal Surgical History: Reports: Hip Replacement, Shoulder Surgery Dermatological Surgical History: Reports: None Social & Family History - Family History Cardiac: Reports: CAD - Tobacco Use Smoking Status *Q: Current Some Day Smoker Years of Tobacco use: 30 Packs/Tins Daily: 0.2 - Caffeine Use Caffeine Use: Reports: Coffee - Recreational Drug Use Recreational Drug Use: No ED ROS GENERAL - Review of Systems Review Of Systems: See Below Constitutional: Reports: No Symptoms HEENT: Reports: No Symptoms. Denies: Nosebleed Respiratory: Reports: Shortness of Breath (mild), Cough, Hemoptysis. Denies: Wheezing, Pleuritic Chest Pain, Sputum Cardiovascular: Reports: Chest Pain (mild) Endocrine: Reports: No Symptoms GI/Abdominal: Reports: No Symptoms : Reports: No Symptoms Musculoskeletal: Reports: No Symptoms Skin: Reports: No Symptoms Neurological: Reports: No Symptoms Psychiatric: Reports: No Symptoms ED EXAM, GENERAL - Physical Exam Exam: See Below Exam Limited By: No Limitations General Appearance: Alert, WD/WN, No Apparent Distress Eye Exam: Bilateral Eye: Normal Inspection Ears: Normal External Exam, Normal Canal, Hearing Grossly Normal, Normal TMs Ear Exam: Bilateral Ear: Auricle Normal, Canal Normal, TM normal Nose: Normal Inspection, No Blood Throat/Mouth: Normal Inspection, Normal Lips, Normal Oropharynx, Normal Voice, No Airway Compromise Head: Atraumatic, Normocephalic Neck: Normal Inspection Respiratory/Chest: No Respiratory Distress, Lungs Clear, Normal Breath Sounds, No Accessory Muscle Use Cardiovascular: Regular Rate, Rhythm, No Edema GI/Abdominal: Normal Bowel Sounds, Soft, Non-Tender, No Distention Back Exam: Normal Inspection Extremities: Normal Inspection, Normal Range of Motion, Non-Tender, No Pedal Edema Neurological: Alert, Oriented, CN II-XII Intact, Normal Cognition, No Motor/ Sensory Deficits Psychiatric: Normal Affect, Normal Mood Skin Exam: Warm, Dry, Intact, Normal Color, No Rash Lymphatic: No Adenopathy EKG INTERPRETATION EKG Date: 07/14/18 Time: 13:00 Rhythm: NSR Rate (Beats/Min): 78 [place]: Normal P-Wave: Present QRS: Normal ST-T: Normal QT: Normal Comparison: No Change Course - Orders/Labs/Meds Orders: Active Orders 24 hr Category Date Time Status EKG Documentation Completion [RC] ASDIRECTED Care 07/14/18 13:08 Active Chest 2V [CR] Stat Exams 07/14/18 13:11 Taken EKG 12 Lead [EK] Routine Ther 07/14/18 13:07 Ordered Labs: Laboratory Tests 07/14/18 07/14/18 07/14/18 Range/Units 13:12 13:12 13:12 WBC 7.5 (4.5-11.0) K/uL RBC 4.72 (4.30-5.90) M/uL Hgb 14.8 (12.0-15.0) g/dL Hct 42.9 (40.0-54.0) % MCV 91 (80-98) fL MCH 31 (27-31) pg MCHC 35 (32-36) % Plt Count 181 (150-400) K/uL D-Dimer, Quantitative < 100 (0.0-400.0) ng/mL C-Reactive Protein 0.12 (0.0-0.3) mg/dL - Radiology Interpretation Free Text/Narrative:: CXR-neg Departure - Departure Time of Disposition: 13:50 Disposition: Home, Self-Care 01 Condition: Good Clinical Impression: Cough with hemoptysis - Discharge Information *PRESCRIPTION DRUG MONITORING PROGRAM REVIEWED*: No *COPY OF PRESCRIPTION DRUG MONITORING REPORT IN PATIENT JULITO: No Prescriptions: Codeine/guaiFENesin [Robitussin AC] 5 - 10 ml PO Q4H PRN #1 liquid PRN Reason: Cough Referrals: Maldonado Cloud MD [Primary Care Provider] - Forms: ED Department Discharge Additional Instructions: Use Robitussin AC syrup as directed for cough. If bleeding continues until the end of the week consider following up with your doctor to discuss pros and cons of chest CT. - My Orders Last 24 Hours: My Active Orders 07/14/18 13:07 EKG 12 Lead [EK] Routine 07/14/18 13:08 EKG Documentation Completion [RC] ASDIRECTED 07/14/18 13:11 Chest 2V [CR] Stat - Assessment/Plan Last 24 Hours: My Active Orders 07/14/18 13:07 EKG 12 Lead [EK] Routine 07/14/18 13:08 EKG Documentation Completion [RC] ASDIRECTED 07/14/18 13:11 Chest 2V [CR] Stat
--- NOTE | 2018-07-14 14:06 | CRLCR ---
INDICATION: Hemoptysis. TECHNIQUE: Two views of the chest PA and lateral. COMPARISON: 12/15/2017. FINDINGS: External monitoring leads are seen overlying the patient. Heart and mediastinum are unchanged. Lungs are clear. No consolidations or pleural effusions. Trachea is midline. Old healed fracture of the right clavicle. IMPRESSION: No evidence of acute disease. Dictated by Roger Posadas MD @ Jul 14 2018 1:59PM Signed by Dr. Roger Posadas @ Jul 14 2018 2:04PM
== END 2018-07-14 14:10 | disposition home or self-care (01) ==
LOC: JP.ED 12:55
DX: R04.2 Hemoptysis (principal); J44.9 Chronic obstructive pulmonary disease, unspecified; K21.9 Gastro-esophageal reflux disease without esophagitis; F17.210 Nicotine dependence, cigarettes, uncomplicated; Z79.82 Long term (current) use of aspirin
CPT/HCPCS: 36415; 71046; 85027; 85379; 86140; 93005; 99285-25

== ENCOUNTER 2019-08-16 16:10 | Emergency (ER) | payer MEDICAID ==
--- NOTE | 2019-08-16 16:48 | EDM.PDOCBH ---
ED HPI GENERAL MEDICAL PROBLEM - General Chief Complaint: Behavioral/Psych Stated Complaint: EVAL VIA LAW Time Seen by Provider: 08/16/19 16:30 Source of Information: Reports: Patient, Police History Limitations: Reports: No Limitations - History of Present Illness INITIAL COMMENTS - FREE TEXT/NARRATIVE: 54-year-old male with chronic depression, past history of suicidal ideation and attempts, is brought in by police after being found in the [place] with a gun planning to injure himself. His is leaving him, his father last year , and when they brought him out of the [place] he discovered his dog as well. He also lost somebody in the past year that was like "an adopted son". He feels hopeless. He has been doing methamphetamine and last use last evening. He drinks rarely. Onset: Unknown/Unsure (Symptoms have been ongoing for several weeks but worsening) - Related Data Allergies Allergy/AdvReac Type Severity Reaction Status Date / Time No Known Allergies Allergy Verified 07/14/18 13:06 Past Medical History Cardiovascular History: Reports: Blood Clots/VTE/DVT Respiratory History: Reports: Asthma, COPD Gastrointestinal History: Reports: GERD Musculoskeletal History: Reports: Arthritis, Fracture Psychiatric History: Reports: Depression, Psych Hospitalization(s), Suicidal Ideation Hematologic History: Reports: Other (See Below) Other Hematologic History: aspirin BID - Infectious Disease History Infectious Disease History: Reports: Chicken Pox, Measles - Past Surgical History GI Surgical History: Reports: Hernia, Inguinal Endocrine Surgical History: Reports: None Musculoskeletal Surgical History: Reports: Hip Replacement, Shoulder Surgery Dermatological Surgical History: Reports: None Social & Family History - Family History Cardiac: Reports: CAD - Tobacco Use Smoking Status *Q: Heavy Tobacco Smoker Years of Tobacco use: 40 Packs/Tins Daily: 1 - Caffeine Use Caffeine Use: Reports: None - Recreational Drug Use Recreational Drug Type: Reports: Methamphetamine ED ROS GENERAL - Review of Systems Review Of Systems: See Below Constitutional: Denies: Fever, Chills Respiratory: Denies: Shortness of Breath Cardiovascular: Denies: Chest Pain GI/Abdominal: Denies: Abdominal Pain, Nausea, Vomiting ED EXAM, BEHAVIORAL HEALTH - Physical Exam Exam: See Below Exam Limited By: No Limitations General Appearance: Alert, No Apparent Distress Eye Exam: Bilateral Eye: Normal Inspection Head: Atraumatic Neck: Supple, Non-Tender Respiratory/Chest: Lungs Clear Cardiovascular: Regular Rate, Rhythm Extremities: Normal Inspection Neurological: Alert, Oriented x 3 Psychiatric: Depressed Mood, Flat Affect, Tearful Skin Exam: Warm, Dry COURSE, BEHAVIORAL HEALTH COMP - Course Vital Signs: Last Vital Signs Temp 97.6 F 08/16/19 20:55 Pulse 97 08/16/19 20:55 Resp 16 08/16/19 20:55 BP 144/99 H 08/16/19 20:55 Pulse Ox 98 08/16/19 20:55 Orders, Labs, Meds: Laboratory Tests 08/16/19 08/16/19 08/16/19 Range/Units 16:39 16:39 16:40 WBC 10.5 (4.5-11.0) K/uL RBC 4.97 (4.30-5.90) M/uL Hgb 15.9 H (12.0-15.0) g/dL Hct 45.1 (40.0-54.0) % MCV 91 (80-98) fL MCH 32 H (27-31) pg MCHC 35 (32-36) % Plt Count 206 (150-400) K/uL Neut % (Auto) 66 (36-66) % Lymph % (Auto) 26 (24-44) % [place] % (Auto) 7 H (2-6) % Eos % (Auto) 1 L (2-4) % Baso % (Auto) 1 (0-1) % Sodium (140-148) mmol/L Potassium (3.6-5.2) mmol/L Chloride (100-108) mmol/L Carbon Dioxide (21-32) mmol/L Anion Gap (5.0-14.0) mmol/L BUN (7-18) mg/dL Creatinine (0.8-1.3) mg/dL Est Cr Clr Drug Dosing mL/min Estimated GFR (MDRD) (>60) Glucose (74-106) mg/dL Calcium (8.5-10.1) mg/dL Total Bilirubin (0.2-1.0) mg/dL AST (15-37) U/L ALT (12-78) U/L Alkaline Phosphatase (46-116) U/L Total Protein (6.4-8.2) g/dL Albumin (3.4-5.0) g/dL Globulin (2.3-3.5) g/dL Albumin/Globulin Ratio (1.2-2.2) TSH, Ultra Sensitive (0.358-3.740) uIU/mL Urine Color Yellow (YELLOW) Urine Appearance Clear (CLEAR) Urine pH 5.5 (5.0-8.0) Ur Specific [place] 1.025 (1.008-1.030) Urine Protein Negative (NEGATIVE) mg/dL Urine Glucose (UA) Negative (NEGATIVE) mg/dL Urine Ketones Negative (NEGATIVE) mg/dL Urine Occult Blood Negative (NEGATIVE) Urine Nitrite Negative (NEGATIVE) Urine Bilirubin Negative (NEGATIVE) Urine Urobilinogen 0.2 (0.2-1.0) EU/dL Ur Leukocyte Esterase Negative (NEGATIVE) Urine RBC Not seen (0-5) Urine WBC 0-5 (0-5) Ur Epithelial Cells Not seen Amorphous Sediment Few Urine Bacteria Not seen Urine Mucus Not seen Urine Opiates Screen Negative (NEGATIVE) Ur Oxycodone Screen Negative (NEGATIVE) Urine Methadone Screen Negative (NEGATIVE) Ur Propoxyphene Screen Negative (NEGATIVE) Ur Barbiturates Screen Negative (NEGATIVE) Ur Tricyclics Screen Negative (NEGATIVE) Ur Phencyclidine Scrn Negative (NEGATIVE) Ur Amphetamine Screen Presumptive positive H (NEGATIVE) U Methamphetamines Scrn Presumptive positive H (NEGATIVE) Urine MDMA Screen Negative (NEGATIVE) U Benzodiazepines Scrn Negative (NEGATIVE) U Cocaine Metab Screen Negative (NEGATIVE) U Marijuana (THC) Screen Negative (NEGATIVE) 08/16/19 Range/Units 16:50 WBC (4.5-11.0) K/uL RBC (4.30-5.90) M/uL Hgb (12.0-15.0) g/dL Hct (40.0-54.0) % MCV (80-98) fL MCH (27-31) pg MCHC (32-36) % Plt Count (150-400) K/uL Neut % (Auto) (36-66) % Lymph % (Auto) (24-44) % [place] % (Auto) (2-6) % Eos % (Auto) (2-4) % Baso % (Auto) (0-1) % Sodium 136 L (140-148) mmol/L Potassium 3.8 (3.6-5.2) mmol/L Chloride 100 (100-108) mmol/L Carbon Dioxide 25 (21-32) mmol/L Anion Gap 14.8 H (5.0-14.0) mmol/L BUN 13 (7-18) mg/dL Creatinine 0.9 (0.8-1.3) mg/dL Est Cr Clr Drug Dosing 101.79 mL/min Estimated GFR (MDRD) > 60 (>60) Glucose 112 H (74-106) mg/dL Calcium 8.9 (8.5-10.1) mg/dL Total Bilirubin 1.0 D (0.2-1.0) mg/dL AST 23 (15-37) U/L ALT 43 (12-78) U/L Alkaline Phosphatase 90 (46-116) U/L Total Protein 7.1 (6.4-8.2) g/dL Albumin 3.7 (3.4-5.0) g/dL Globulin 3.4 (2.3-3.5) g/dL Albumin/Globulin Ratio 1.1 L (1.2-2.2) TSH, Ultra Sensitive 1.959 (0.358-3.740) uIU/mL Urine Color (YELLOW) Urine Appearance (CLEAR) Urine pH (5.0-8.0) Ur Specific [place] (1.008-1.030) Urine Protein (NEGATIVE) mg/dL Urine Glucose (UA) (NEGATIVE) mg/dL Urine Ketones (NEGATIVE) mg/dL Urine Occult Blood (NEGATIVE) Urine Nitrite (NEGATIVE) Urine Bilirubin (NEGATIVE) Urine Urobilinogen (0.2-1.0) EU/dL Ur Leukocyte Esterase (NEGATIVE) Urine RBC (0-5) Urine WBC (0-5) Ur Epithelial Cells Amorphous Sediment Urine Bacteria Urine Mucus Urine Opiates Screen (NEGATIVE) Ur Oxycodone Screen (NEGATIVE) Urine Methadone Screen (NEGATIVE) Ur Propoxyphene Screen (NEGATIVE) Ur Barbiturates Screen (NEGATIVE) Ur Tricyclics Screen (NEGATIVE) Ur Phencyclidine Scrn (NEGATIVE) Ur Amphetamine Screen (NEGATIVE) U Methamphetamines Scrn (NEGATIVE) Urine MDMA Screen (NEGATIVE) U Benzodiazepines Scrn (NEGATIVE) U Cocaine Metab Screen (NEGATIVE) U Marijuana (THC) Screen (NEGATIVE) Medications Discontinued Medications Generic Name Dose Route Start Last Admin Trade Name Freq PRN Reason Stop Dose Admin Acetaminophen 1,000 mg 08/16/19 21:19 08/16/19 21:25 Tylenol Extra Strength PO 08/16/19 21:20 1,000 mg ONETIME ONE Administration Ondansetron HCl 4 mg 08/16/19 21:20 Zofran IVPUSH 08/16/19 21:21 ONETIME ONE Ondansetron HCl 4 mg 08/16/19 21:21 08/16/19 21:25 Zofran Odt PO 08/16/19 21:22 4 mg ONETIME ONE Administration Re-Assessment/Re-Exam: Patient is cooperative but very depressed, willing to get help. He is medically stable. Calls will be made to see if we can find an inpatient treatment for evaluation and stabilization of depression. He does however have a dual diagnosis as he has been using methamphetamine. Labs returned generally normal, other than the toxicology of methamphetamine in the urine. His did call while he was in the room waiting for placement and said she was still getting texts from him saying that this was only "prolonging the inevitable". Patient was accepted at [facility], a 72-hour hold was written because of the patient's ongoing messaging of his intention to self-harm. Departure - Departure Time of Disposition: 21:15 Disposition: DC/Tfer to Other 70 Clinical Impression: Depressive disorder, Suicidal ideation - Discharge Information Referrals: PCP,None [Primary Care Provider] - Forms: ED Department Discharge Care Plan Goals: Patient is to be transferred to [facility] for inpatient evaluation and treatment for suicidal ideation with intent to self-harm. Sepsis Event Note - Evaluation Sepsis Screening Result: No Definite Risk - Focused Exam Vital Signs: Vital Signs Temp Pulse Resp BP Pulse Ox 08/16/19 20:55 97.6 F 97 16 144/99 H 98 Date Exam was Performed: 08/17/19 Time Exam was Performed: 07:53
[2019-08-16] MEDS ORDERED: Acetaminophen 500 MG Tab PO ONE (21:19)
[2019-08-16] MEDS ORDERED: Ondansetron 4 MG/2 ML SDV IVPUSH ONE (21:20)
[2019-08-16] MEDS ORDERED: Ondansetron 4 MG Tab.DIS PO ONE (21:21)
[2019-08-16 21:43] VITALS: BP 144/99; PULSE 97
== END 2019-08-16 21:27 | disposition other institution (70) ==
LOC: JP.ED 16:10
DX: F32.9 Major depressive disorder, single episode, unspecified (principal); F17.210 Nicotine dependence, cigarettes, uncomplicated
CPT/HCPCS: 36415; 80053; 80305; 81001; 84443; 85025; 99285; A9270

== ENCOUNTER 2024-04-10 01:45 | Emergency (ER) | payer MEDICAID ==
[2024-04-10 02:00] LABS: BASOPHILS ABSOLUTE AUTO 0.05 K/uL (0.00-0.10); BASOPHILS PERCENT AUTO 0.5 % (0.1-1.3); EOSINOPHILS ABSOLUTE AUTO 0.26 K/uL (0.00-0.40); EOSINOPHILS PERCENT AUTO 2.4 % (0.0-5.4); HEMATOCRIT 41.3 % (38.4-49.7); HEMOGLOBIN 14.8 g/dL (12.9-16.9); IMMATURE GRAN ABSOLUTE AUTO 0.05 K/uL (0.00-0.23); IMMATURE GRAN PERCENT AUTO 0.5 % (0.0-0.7); LYMPHOCYTES ABSOLUTE AUTO 3.94 K/uL (0.8-3.3); LYMPHOCYTES PERCENT AUTO 36.7 % (11.4-47.7); MEAN CORPUSCULAR HEMOGLOBIN 32.8 pg (31.6-35.5); MEAN CORPUSCULAR HGB CONC 35.8 g/dL (31.6-35.5); MEAN CORPUSCULAR VOLUME 91.6 fL (81.4-99.0); MONOCYTES ABSOLUTE AUTO 0.74 K/uL (0.20-0.90); MONOCYTES PERCENT AUTO 6.9 % (3.3-12.6); NEUTROPHILS ABSOLUTE AUTO 5.71 K/uL (1.0-7.6); PLATELET COUNT,PLT 187 K/uL (130-375); RED BLOOD CELL COUNT 4.51 M/uL (4.14-5.76); WHITE BLOOD CELL COUNT,WBC 10.8 K/uL (3.2-11.0)
[2024-04-10 02:20] LABS: CREATININE 1.2 mg/dL (0.8-1.3); EST CRCL DRUG DOSING (CG) 72.75 mL/min; POTASSIUM,K 3.9 mmol/L (3.6-5.2); TROPONIN I HIGH SENSITIVITY 9.2 pg/mL (<=60.3)
[2024-04-10 02:21] LABS: ANION GAP 12.9 mmol/L (5.0-14.0)
[2024-04-10] MEDS: Aspirin 81 MG Tab.Chew PO ONE (03:00)
[2024-04-10 04:48] VITALS: BP 130/86; PULSE 72
== END 2024-04-10 04:45 | disposition home or self-care (01) ==
LOC: JP.ED 01:45
DX: R07.89 Other chest pain (principal); J44.9 Chronic obstructive pulmonary disease, unspecified
CPT/HCPCS: 36415; 71045; 80048; 84484; 85025; 85379; 93005; 93010; 99284; 99285; A9270